=== PATIENT | female | born 1980 | race Caucasian/White ===

== ENCOUNTER 2016-09-02 06:10 | Inpatient (IN) | payer MEDICAID ==
[~2016-09-02] VITALS: Ht 147.3 cm; Wt 70.0 kg
[2016-09-02] MEDS ORDERED: LACTATED RINGERS 1,000 ML IV SCH ×2 (06:15→06:22)
[2016-09-02] MEDS ORDERED: OXYTOCIN 30U/ 0.9% NaCL 500ML 500 ML IV SCH (06:22)
[2016-09-02] MEDS ORDERED: SODIUM CITRATE/CITRIC ACID 30 ML UDC ONE (06:29)
[2016-09-02] MEDS ORDERED: LACTATED RINGERS 1,000 ML IVBOLUS ONE (06:30)
[2016-09-02] MEDS ORDERED: SODIUM CITRATE/CITRIC ACID 30 ML UDC PO ONE (06:30)
[2016-09-02] MEDS ORDERED: METOCLOPRAMIDE 5 MG/ML, 2ML IV ONE (06:30)
[2016-09-02] MEDS ORDERED: METOCLOPRAMIDE 5 MG/ML, 2ML ONE (06:30)
[2016-09-02] MEDS ORDERED: PLEASE ENTER ALLERGIES MC SCH ×2 (06:30)
[2016-09-02] MEDS ORDERED: NEWBORN KIT ONE (06:31)
[2016-09-02] MEDS ORDERED: OXYTOCIN 30U/ 0.9% NaCL 500ML 500 ML ONE (06:32)
[2016-09-02 06:43] VITALS: BP 115/58
[2016-09-02] MEDS ORDERED: FENTANYL PF 100 MCG/2ML ONE (07:48)
[2016-09-02] MEDS ORDERED: EPHEDRINE 50 MG/ML, 1ML ONE (08:13)
[2016-09-02] MEDS ORDERED: OXYTOCIN 10 UNITS/ML, 1ML ONE (08:13)
[2016-09-02] MEDS ORDERED: LIDOCAINE 1%, 20ML ONE (08:13)
[2016-09-02] MEDS ORDERED: MIDAZOLAM 1 MG/ML, 2ML IV PRN (10:00)
[2016-09-02] MEDS ORDERED: METHYLERGONOVINE 0.2 MG/ML IM PRN (10:00)
[2016-09-02] MEDS ORDERED: OXYcodone 5 MG/5 ML ORAL.SOL UDC PO PRN (10:00)
[2016-09-02] MEDS ORDERED: FENTANYL PF 100 MCG/2ML IV PRN (10:00)
[2016-09-02] MEDS ORDERED: ONDANSETRON 2MG/ML, 2ML IVPush PRN (10:00)
[2016-09-02] MEDS ORDERED: MEPERIDINE/PF 25MG/0.5ML IVPush PRN (10:00)
[2016-09-02] MEDS ORDERED: morphine SULFATE 10 MG/ML, 1ML IV PRN (10:00)
[2016-09-02] MEDS ORDERED: ONDANSETRON 2MG/ML, 2ML IV PRN (10:00)
[2016-09-02] MEDS ORDERED: CALCIUM CARBONATE 500 MG TAB.CHEW PO PRN (10:00)
[2016-09-02] MEDS ORDERED: CARBOPROST TROMETHAMINE 250 MCG/ML, 1ML IM PRN (10:00)
[2016-09-02] MEDS ORDERED: SIMETHICONE 80 MG CHEW TAB PO PRN (10:00)
[2016-09-02] MEDS ORDERED: MISOPROSTOL 200 MCG TABLET PR PRN (10:00)
[2016-09-02] MEDS ORDERED: IBUPROFEN 600 MG TABLET PO PRN (10:00)
[2016-09-02] MEDS ORDERED: METHYLERGONOVINE 0.2 MG/ML IM ONE (10:16)
[2016-09-02] MEDS ORDERED: MISOPROSTOL 200 MCG TABLET ONE (10:16)
[2016-09-02] MEDS: OXYTOCIN 30U/ 0.9% NaCL 500ML 500 ML IV SCH ×2 (10:20→19:46)
[2016-09-02] MEDS: LACTATED RINGERS 1,000 ML IV SCH ×4 (11:00→21:00)
[2016-09-02 11:24] LABS: DIFF TOTAL CELLS COUNTED 100 CELL DIFF
[2016-09-02 11:33] LABS: VERIFY COUNTS? YES
[2016-09-02 11:34] LABS: GIANT PLATELETS 1+; LARGE PLATELETS 1+
[2016-09-02] MEDS ORDERED: OXYcodone 5 MG/5 ML ORAL.SOL UDC ONE (11:51)
[2016-09-02 12:40] VITALS: BP 110/70
[2016-09-02] MEDS: OXYcodone/APAP 5/325MG TABLET PO PRN ×2 (12:56→17:12)
[2016-09-02 14:00] VITALS: BP 94/60
[2016-09-02 18:30] VITALS: BP 105/68
[2016-09-02] MEDS: OXYcodone IR 5MG TABLET PO PRN (20:30)
[2016-09-02] MEDS: KETOROLAC 30 MG/1 ML IV SCH (23:12)
[2016-09-03] VITALS: BP 104/66
[2016-09-03] MEDS: LACTATED RINGERS 1,000 ML IV SCH ×4 (01:46→17:14)
[2016-09-03 04:00] VITALS: BP 96/63
[2016-09-03] MEDS: OXYcodone IR 5MG TABLET PO PRN ×3 (04:15→21:13)
[2016-09-03] MEDS: KETOROLAC 30 MG/1 ML IV SCH ×2 (05:30→11:48)
[2016-09-03] MEDS: OXYTOCIN 30U/ 0.9% NaCL 500ML 500 ML IV SCH ×2 (05:46→07:04)
[2016-09-03 06:40] VITALS: BP 95/61
[2016-09-03] MEDS: DOCUSATE 100 MG CAPSULE PO PRN ×2 (09:01→21:12)
[2016-09-03] MEDS: PRENATAL VIT/IRON/FA 1 EACH TABLET PO SCH (09:01)
[2016-09-03] MEDS: FERROUS SULFATE 325 MG TABLET PO SCH ×2 (09:03→21:12)
[2016-09-03] MEDS ORDERED: KETOROLAC 30 MG/1 ML ONE ×2 (11:29→17:47)
[2016-09-03] MEDS ORDERED: KETOROLAC 30 MG/1 ML IVPush ONE (18:00)
[2016-09-03 18:46] VITALS: BP 109/72
[2016-09-03] MEDS ORDERED: DIPH,PERTUSS(ACELL),TET VAC/PF NC IM-VACC ONE (21:00)
[2016-09-04] MEDS: LACTATED RINGERS 1,000 ML IV SCH ×3 (03:00→09:46)
[2016-09-04] MEDS: OXYcodone IR 5MG TABLET PO PRN ×2 (04:00→10:03)
[2016-09-04] MEDS: IBUPROFEN 600 MG TABLET PO PRN ×2 (04:00→10:03)
[2016-09-04 06:37] VITALS: BP 104/69
[2016-09-04] MEDS: PRENATAL VIT/IRON/FA 1 EACH TABLET PO SCH (09:00)
[2016-09-04] MEDS: DOCUSATE 100 MG CAPSULE PO PRN (10:03)
[2016-09-04] MEDS: FERROUS SULFATE 325 MG TABLET PO SCH (10:03)
[2016-09-04] MEDS: OXYTOCIN 30U/ 0.9% NaCL 500ML 500 ML IV SCH (11:46)
[2016-09-04] MEDS ORDERED: DOCU-30 PO (13:09)
[2016-09-04] MEDS ORDERED: FERR325T20 PO (13:09)
[2016-09-04] MEDS ORDERED: OXYC-302 PO (13:10)
[2016-09-04] MEDS ORDERED: IBUP800T PO (13:11)
== END 2016-09-04 15:28 | disposition home or self-care (01) | DRG 765 ==
LOC: LDIP 06:10 → 2NW 12:28
PROVIDERS: ADMIT Student in an Organized Health Care Education/Training Program; ATTEND Student in an Organized Health Care Education/Training Program
PROC: 10D00Z1 Extraction of Products of Conception, Low, Open Approach (ICD-10-PCS; principal; 2016-09-02)
PROC: 0UB70ZZ Excision of Bilateral Fallopian Tubes, Open Approach (ICD-10-PCS; 2016-09-02)
DX: O34.211 Maternal care for low transverse scar from previous cesarean delivery (principal); O72.1 Other immediate postpartum hemorrhage; D62 Acute posthemorrhagic anemia; Z37.0 Single live birth; Z30.2 Encounter for sterilization; Z3A.39 39 weeks gestation of pregnancy; Z83.3 Family history of diabetes mellitus; Z87.59 Personal history of other complications of pregnancy, childbirth and the puerperium
CPT/HCPCS: 36415; 85025; 86850; 86900; 86923; 88302; 90715; J1885; J3010; J3490; J2210; J2590; J2765; J7120